=== PATIENT | male | born 1980 | race Hispanic/Latino ===

== ENCOUNTER 2017-11-26 05:38 | Emergency (ER) | payer OTHER ==
[2017-11-26] MEDS ORDERED: KETOROLAC TROMETHAMINE 60 MG/2 ML VIAL ONE (06:46)
== END 2017-11-26 06:58 | disposition home or self-care (01) ==
LOC: EDH 05:38
DX: G89.18 Other acute postprocedural pain (principal); R10.31 Right lower quadrant pain; Z90.49 Acquired absence of other specified parts of digestive tract
CPT/HCPCS: 76705; 76870; 96372; 99284; J1885

== ENCOUNTER 2018-03-23 10:38 | Emergency (ER) | payer SELFPAY ==
[2018-03-23] MEDS ORDERED: DEXAMETHASONE SOD PHOSPHATE 10MG/ML 1ML VIAL ONE (10:54)
[2018-03-23] MEDS ORDERED: KETOROLAC TROMETHAMINE 60 MG/2 ML VIAL ONE (10:54)
== END 2018-03-23 11:31 | disposition home or self-care (01) ==
LOC: EDH 10:38
DX: S83.421A Sprain of lateral collateral ligament of right knee, initial encounter (principal); Z90.49 Acquired absence of other specified parts of digestive tract; X58.XXXA Exposure to other specified factors, initial encounter; Y93.89 Activity, other specified; Y92.89 Other specified places as the place of occurrence of the external cause; Y99.8 Other external cause status
CPT/HCPCS: 73562; 96372 ×2; 99283; J1100; J1885

== ENCOUNTER 2019-04-05 05:40 | Emergency (ER) | payer SELFPAY ==
[2019-04-05] MEDS ORDERED: IBUPROFEN 800 MG TAB ONE (06:00)
== END 2019-04-05 07:21 | disposition home or self-care (01) ==
LOC: EDH 05:40
DX: M17.11 Unilateral primary osteoarthritis, right knee (principal)
CPT/HCPCS: 73562